=== PATIENT | female | born 1935 | race Caucasian/White ===

== ENCOUNTER → 2018-03-12 | Outpatient (CLI) | payer MEDICARE, OTHER ==
--- NOTE | 2018-03-13 09:15 | Diagnostic Imaging Report ---
History: Low back pain. Comparison studies: None Technique: Axial images were obtained through the lumbar spine from T12-S1. Coronal and sagittal images reconstructed from the axial data. Intravenous contrast: None Findings: The usual 5 non-rib bearing lumbar vertebral bodies are present. Alignment: S shaped curvature of the lumbar spine. 5 mm grade 1 retrolisthesis at L2-L3 and 6 mm grade 1 retrolisthesis at L3-L4. Soft tissues: Atherosclerotic calcification in abdominal aorta and its branches. 1 cm nonspecific hypodense nodule in left renal parenchyma, possibly represents a renal cyst. Paraspinal muscles: Significant fatty atrophy of posterior paraspinal muscles from level L4 to the sacrum. Sacroiliac joints: Mild to moderate degenerative changes in bilateral sacroiliac joints with decreased joint space, sclerosis and osteophyte Vertebrae: Diffuse osseous demineralization. Multilevel degenerative Schmorl's node, particularly T11-T12, T12-L1 and L1-L2. No fractures, infection or neoplasm. Degenerative changes: L1-L2: Mild degenerative disc disease. No canal or foraminal stenosis. L2-L3: Disc bulge and facet arthrosis without canal stenosis. Bilateral mild foraminal stenosis. L3-L4: Moderate degenerative disc disease with decreased intervertebral disc space, endplate sclerosis and anterior vertebral osteophyte. Disc bulge and grade 1 retrolisthesis in combination with facet arthrosis and thickened ligamentum flavum results in mild canal stenosis. Bilateral moderate foraminal stenosis. L4-L5: Mild degenerative disc disease. Disc bulge in combination with thickened ligamentum flavum and bilateral facet arthrosis effaces thecal sac without significant canal stenosis. Bilateral mild foraminal stenosis. L5-S1: Mild degenerative disc disease. Bilateral moderate facet arthrosis. No canal stenosis. Mild bilateral foraminal stenosis. IMPRESSION: 1. Scoliosis of lumbar spine, with grade 1 retrolisthesis at L2-L3 and L3-L4. 2. Multilevel mild lumbar spondylosis, with mild canal stenosis at L3-L4. 3. Bilateral mild foraminal stenosis at L2-L3, L4-L5, L5-S1 and bilateral moderate foraminal stenosis at L3-L4. 4. Multilevel degenerative disc disease and facet arthrosis as detailed above. 5. Ligament, spinal cord and or vascular abnormalities cannot be excluded on the basis of this examination. Signed by: Dr. Mariola Goldberg M.D. on 03/13/2018 9:12 AM
--- NOTE | 2018-03-13 09:34 | Diagnostic Imaging Report ---
TECHNIQUE: Computed tomography imaging of the LEFT HIP was performed WITHOUT injected contrast. HISTORY: Left hip pain COMPARISON: None available. FINDINGS: No fracture or osteonecrosis. No lytic or blastic lesion. 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 Generalized atrophy of the musculature. No fluid collection. No mass. Colonic diverticulosis. 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 Signed by: Dr. Davin Iniguez M.D. on 03/13/2018 9:31 AM
== END ==
LOC: CT 15:21
PROVIDERS: ATTEND Family Medicine
DX: M54.5 Low back pain (principal); M25.552 Pain in left hip
CPT/HCPCS: 72131

== ENCOUNTER 2019-02-03 16:48 | Emergency (ER) | payer MEDICARE, OTHER ==
[~2019-02-03] VITALS: Ht 160 cm; Wt 42.6 kg
--- OUTSIDE RECORDS SUMMARY | 2019-02-03 16:52 | XMS REPORT ---
Author Author [facility] Address Unknown Phone Unavailable Care Team Providers Care [employer] Supervisor Name Role Phone JUNITO SANTOS Unavailable Unavailable Payers Payer Name Policy Type Policy Number Effective Date Expiration Date Problems This patient has no known problems. Allergies, Adverse Reactions, Alerts Allergy Name Allergy Type Status Severity Reaction(s) Onset Date Inactive Date Treating Clinician Comments hydralazine HCl DA Active U 2010-05-31 00:00:00 brimonidine tartrate DA Active U 2010-05-31 00:00:00 methyldopa DA Active U 2010-05-31 00:00:00 nadolol DA Active U 2010-05-31 00:00:00 hydrochlorothiazide DA Active U 2010-05-31 00:00:00 Medications This patient has no known medications. Results Test Description Test Time Test Comments Text Results Atomic Results Result Comments CT HIP LEFT WO 2018-03-13 09:25:00 [facility] [address] [address] Patient Name: EFE BURGESS MR #: [id number] : 1935 Age/Sex: 82/F Req #: [id number] Adm Physician: Ordered by: JUNITO SANTOS MD Report #: [id number] Location: [place] Room/Bed: Procedure: CT/CT HIP LEFT WO Exam Date: 03/12/18 Exam Time: 163 REPORT STATUS: Signed TECHNIQUE: Computed tomography imaging of the LEFT HIP was performed WITHOUT injected contrast. HISTORY: Left hip pain COMPARISON: None available. FINDINGS: No fracture or osteonecrosis. No lytic or blastic lesion. 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 Generalized atrophy of the musculature. No fluid collection. No mass. Colonic diverticulosis. 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 Signed by: Dr. Jayde Simms M.D. on 03/13/2018 9:31 AM Dictated By: JAYDE SIMMS MD 0 Transcribed By: OLGA LIDIA on 03/13/18930 COPY TO: JUNITO SANTOS MD CT LUMBAR SPINE WO 2018-03-13 08:59:00 [address] [address] Patient Name: EFE BURGESS MR #: [id number] : 1935 Age/Sex: 82/F Req #: [id number] Adm Physician: Ordered by: JUNITO SANTOS MD Report #: [id number] Location: CT Room/Bed: Procedure: CT/CT LUMBAR SPINE WO Exam Date: 03/12/18 Exam Time: 1630 REPORT STATUS: Signed History: Low back pain. Comparison studies: None Technique: Axial images were obtained through the lumbar spine from T12-S1. Coronal and sagittal images reconstructed from the axial data. Intravenous contrast: None Findings: The usual 5 non-rib bearing lumbar vertebral bodies are present. Alignment: S shaped curvature of the lumbar spine. 5 mm grade 1 retrolisthesis at L2-L3 and 6 mm grade 1 retrolisthesis at L3-L4. Soft tissues: Atherosclerotic calcification in abdominal aorta and its branches. 1 cm nonspecific hypodense nodule in left renal parenchyma, possibly represents a renal cyst. Paraspinal muscles: Significant fatty atrophy of posterior paraspinal muscles from level L4 to the sacrum. Sacroiliac joints: Mild to moderate degenerative changes in bilateral sacroiliac joints with decreased joint space, sclerosis and osteophyte Vertebrae: Diffuse osseous demineralization. Multilevel degenerative Schmorl's node, particularly T11- T12, T12-L1 and L1-L2. No fractures, infection or neoplasm. Degenerative changes: L1-L2: Mild degenerative disc disease. No canal or foraminal stenosis. L2-L3: Disc bulge and facet arthrosis without canal stenosis. Bilateral mild foraminal stenosis. L3-L4: Moderate degenerative disc disease with decreased intervertebral disc space, endplate sclerosis and anterior vertebral osteophyte. Disc bulge and grade 1 retrolisthesis in combination with facet arthrosis and thickened ligamentum flavum results in mild canal stenosis. Bilateral moderate foraminal stenosis. L4-L5: Mild degenerative disc disease. Disc bulge in combination with thickened ligamentum flavum and bilateral facet arthrosis effaces thecal sac without significant canal stenosis. Bilateral mild foraminal stenosis. L5-S1: Mild degenerative disc disease. Bilateral moderate facet arthrosis. No canal stenosis. Mild bilateral foraminal stenosis. IMPRESSION: 1. Scoliosis of lumbar spine, with grade 1 retrolisthesis at L2-L3 and L3-L4. 2. Multilevel mild lumbar spondylosis, with mild canal stenosis at L3-L4. 3. Bilateral mild foraminal stenosis at L2-L3, L4-L5, L5-S1 and bilateral moderate foraminal stenosis at L3-L4. 4. Multilevel degenerative disc disease and facet arthrosis as detailed above. 5. Ligament, spinal cord and or vascular abnormalities cannot be excluded on the basis of this examination. Signed by: Dr. Mariola Goldberg M.D. on 03/13/2018 9:12 AM Dictated By: MARIOLA GOLDBERG MD 1 Transcribed By: OLGA LIDIA on 03/13/18911 COPY TO: JUNITO SANTOS MD
--- OUTSIDE RECORDS SUMMARY | 2019-02-03 16:52 | XMS REPORT | Clinical Summary ---
Author Author [employer] Organization [employer] Address Unknown Phone Unavailable Care Team Providers Care [employer] Manager Name Role Phone Asked, No Pcp PCP Unavailable Allergies Comments Active Allergy Reactions Severity Noted Date Heavy chest Methyldopa-Hydrochlorothi Rash Low 07/04/2016 azide Stingy feeling Brimonidine Other (See 07/04/2016 Comments) Heavy chest feeling Hydralazine Rash Low 07/04/2016 Beta-Blockers 09/24/2018 (Beta-Adrenergic Blocking Agts) Clindamycin 04/05/2018 hacky cough, lung problem, tachycardia Nadolol Other (See 07/04/2016 Comments) Passed out, hypertension, breathing went shallow, dif breathing Hydromorphone Other (See 07/04/2016 Comments) Pt. Complains that medication makes her nauseous Guaifenesin Low 09/26/2018 Nifedipine 04/05/2018 Medications End Date Status Medication Sig Dispensed Refills Start Date Active atorvastatin (LIPITOR) 20 Take 20 mg by 0 MG tablet mouth nightly. Active bimatoprost (LUMIGAN) Administer 1 0 0.01 % ophthalmic drops drop to both eyes nightly. Active dorzolamide (TRUSOPT) 2 % Administer 1 0 ophthalmic solution drop to both eyes 3 (three) times a day. Active arformoterol (BROVANA) 15 Take 15 mcg 0 mcg/2 mL solution for by nebulization nebulization 2 (two) times a day. Active levothyroxine (SYNTHROID, Take 125 mcg 0 LEVOTHROID) 125 MCG by mouth tablet every morning. Patient takes BRAND NAME Synthroid Active ipratropium (ATROVENT) Take by 0 0.02 % nebulizer solution nebulization 2 (two) times a day. Active propafenone SR (RYTHMOL Take 225 mg 0 SR) 225 MG 12 hr capsule by mouth 2 (two) times a day. Active calcium carbonate-vitamin Take 1 tablet 0 D3 500 mg-200 unit per by mouth 2 tablet (two) times a day with meals. Active apixaban (ELIQUIS) 2.5 mg Take 2.5 mg 0 tablet by mouth 2 (two) times a day. Active albuterol (PROAIR Inhale 2 0 HFA,PROVENTIL puffs every 6 HFA,VENTOLIN HFA) 90 (six) hours mcg/actuation inhaler as needed for wheezing. Active multivitamin (THERAGRAN) Take 1 tablet 0 tablet by mouth 2 (two) times a day. Active ascorbic acid, vitamin C, Take 500 mg 0 (ascorbic acid with macho by mouth 2 hips) 500 MG tablet (two) times a day. Active amlodipine-valsartan Take 1 tablet 0 (EXFORGE) 5-160 mg per by mouth tablet daily. Active nystatin (MYCOSTATIN) Take 500,000 0 100,000 unit/mL Units by suspension mouth 4 (four) times a day as needed. Swish in mouth Active sodium chloride 3 % Take 4 mL by 0 nebulizer solution nebulization 2 (two) times a day. Active polyethylene glycol Take 17 g by 0 (MIRALAX) 17 gram packet mouth daily as needed for constipation. 04/05/2018 Discontinued aspirin (ECOTRIN) 81 MG Take 81 mg by 0 enteric coated tablet mouth daily. 04/06/2018 Discontinued ascorbic acid, vitamin C, Take 500 mg 0 (VITAMIN C) 500 MG tablet by mouth 2 (two) times a day. 04/05/2018 Discontinued cyanocobalamin 1,000 Inject 1,000 0 mcg/mL injection mcg into the shoulder, thigh, or buttocks once. 04/05/2018 Discontinued cholecalciferol, vitamin Take 400 0 D3, (VITAMIN D3) 400 unit Units by tablet mouth daily. 04/05/2018 Discontinued amLODIPine (NORVASC) 5 mg Take 5 mg by 0 tablet mouth daily. 04/05/2018 Discontinued valsartan (DIOVAN) 160 MG Take 160 mg 0 tablet by mouth daily. 04/05/2018 Discontinued albuterol (PROVENTIL) 2.5 Take 2.5 mg 0 mg /3 mL (0.083 %) by nebulizer solution nebulization every 4 (four) hours as needed for shortness of breath. 04/05/2018 Discontinued methylPREDNISolone Take 2 mg by 0 (MEDROL) 2 MG tablet mouth daily. 04/15/2018 Discontinued amlodipine-valsartan Take 1 tablet 0 (EXFORGE) 5-160 mg per by mouth tablet daily. 04/15/2018 Discontinued sodium chloride 3 % Take 4 mL by 0 nebulizer solution nebulization 2 (two) times a day. 04/15/2018 Discontinued predniSONE (DELTASONE) 5 Take 15 mg by 0 mg tablet mouth daily. 8 For 3 days,starting on 04/04/2018 04/15/2018 Discontinued predniSONE (DELTASONE) 5 Take 10 mg by 0 mg tablet mouth daily. 8 For 3 days, starting on 04/07/2018 04/15/2018 Discontinued predniSONE (DELTASONE) 5 Take 5 mg by 0 mg tablet mouth daily. 8 For 3 days, starting on 04/10/2018 04/15/2018 Discontinued cefdinir (OMNICEF) 300 MG Take 300 mg 0 capsule by mouth 2 8 (two) times a day. For 14 days, starting on 04/01/2018 04/06/2018 Discontinued calcium carbonate/vitamin Take 1 tablet 0 D3 (CALTRATE 600 + D by mouth 2 ORAL) (two) times a day. 04/06/2018 Discontinued LUMIGAN 0.01 % ophthalmic Administer 0 drops 0.01 drops to 8 both eyes daily. 05/16/2018 valsartan (DIOVAN) 160 MG Take 1 tablet 30 tablet 0 tablet (160 mg 8 total) by mouth daily for 30 days. 05/16/2018 amLODIPine (NORVASC) 5 mg Take 1 tablet 30 tablet 0 tablet (5 mg total) 8 by mouth daily for 30 days. 05/16/2018 calcium citrate-vitamin Take 1 tablet 30 tablet 0 D3 (CITRICAL+D) 315-250 by mouth 8 mg-unit per tablet daily for 30 days. 05/16/2018 predniSONE (DELTASONE) 20 Take 1 tablet 30 tablet 0 mg tablet (20 mg total) 8 by mouth daily for 30 days. 05/15/2018 budesonide (PULMICORT) Take 2 mL 120 mL 0 0.5 mg/2 mL nebulizer (0.5 mg 8 solution total) by nebulization 2 (two) times a day for 30 days. 05/15/2018 acetylcysteine (MUCOMYST) Take 4 mL by 360 mL 0 200 mg/mL (20 %) nebulization 8 nebulizer solution 3 (three) times a day for 30 days. 09/08/2018 Discontinued meropenem 1 g in sodium Infuse 1 g 1 each 0 chloride 0.9 % MBP 100 mL into a venous 8 IVPB catheter every 12 (twelve) hours. 10/13/2018 benzonatate (TESSALON) Take 1 30 capsule 1 100 MG capsule capsule (100 8 mg total) by mouth 3 (three) times a day as needed for cough for up to 30 days. 09/24/2018 Discontinued predniSONE (DELTASONE) 10 [id number],[id number] 50 tablet 0 mg tablet 3d,[id number] 8 then stop 09/24/2018 Discontinued nystatin (MYCOSTATIN) Take 5 mL by 200 mL 0 100,000 unit/mL mouth 4 8 suspension (four) times a day for 10 days. Swish in mouth 10/08/2018 cefepime (MAXIPIME) 1 Infuse 1 g 1 each 0 gram in 50 mL Mini-Bag into a venous 9 Plus catheter daily for 7 days. 10/31/2018 vancomycin 750 mg in Infuse 750 mg 1 each 0 sodium chloride 0.9% 250 into a venous 9 mL IVPB catheter daily for 30 days. Active Problems Problem Noted Date Dyspnea 09/24/2018 COPD exacerbation 04/05/2018 Chronic a-fib 11/03/2016 Last Assessment & Plan: Management by supervisor industrial arts education. Anemia due to acute blood loss 11/03/2016 Iron deficiency anemia 11/03/2016 Last Assessment & Plan: Will check iron studies. Continue iron supplements, management by primary care doctor. 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 Denies further hematochezia, melena. Patient reports that she has blood work done 1 week ago and has not received results yet. She will send copy to us once she receives. She doesn't want to repeat blood work today. No further endoscopic intervention. Continue to monitor. Pulmonary hypertension 11/03/2016 Hypothyroidism 11/03/2016 Bronchiectasis 11/03/2016 Acute on chronic respiratory failure with hypoxemia 11/03/2016 Cachexia 11/03/2016 Warfarin-induced coagulopathy 11/03/2016 Shortness of breath 11/02/2016 Bronchiectasis 07/04/2016 Last Assessment & Plan: Management as per pulmonary team. Resolved Problems Problem Noted Date Resolved Date Pneumonia 09/08/2018 09/09/2018 Encounters Care Team Description Date Type Specialty Fernando Dhillon MD Patel, Sachin P., MD Dyspnea, unspecified type (Primary Dx); COPD exacerbation (HCC) 09/24/2018 [facility] General Internal Medicine - Encounter 10/01/2018 Arnaldo Guzmán MD Nguyen, Thuyen T., MD Kazim, Lubna S., MD Pneumonia of left lung due to infectious organism, unspecified part of lung (Primary Dx); Hyponatremia; Acute respiratory distress; Elevated brain natriuretic peptide (BNP) level 09/08/2018 Hospital Neurosurgery - Encounter 09/13/2018 N/A 05/28/2018 Intake Access Jacky Barrios MD Nguyen, Keesha Pineda MD COPD with acute exacerbation (Primary Dx) 04/05/2018 Hospital Neurology - Encounter 04/15/2018 Leon Kauffman MD 03/15/2018 Telephone Gastroenterology Leon Kauffman MD 03/13/2018 Telephone Gastroenterology after 02/02/2018 Family History Medical History Relation Name Comments Diabetes Father Heart disease Mother Asthma Sister COPD Sister Diabetes Sister Heart disease Sister Relation Name Status Comments Father Mother Sister Social History Date Tobacco Use Types Packs/Day Years Used Never Smoker Smokeless Tobacco: Never Used Alcohol Use Drinks/Week oz/Week Comments No Sex Assigned at Date Recorded Not on file Industry Job Start Date Occupation Not on file Not on file Not on file Travel End Travel History Travel Start No recent travel history available. Last Filed Vital Signs Time Taken Vital Sign Reading 10/01/2018 7:44 AM [employer] Blood Pressure 133/61 10/01/2018 3:14 PM [employer] Pulse 77 10/01/2018 7:44 AM [employer] Temperature 36.9 C (98.4 F) 10/01/2018 3:14 PM [employer] Respiratory Rate 18 10/01/2018 3:07 PM [employer] Oxygen Saturation 99% - Inhaled Oxygen - Concentration 09/08/2018 3:01 PM [employer] Weight 42.6 kg (94 lb) 09/24/2018 12:38 PM [employer] Height 160 cm (5' 3") 09/08/2018 3:01 PM [employer] Body Mass Index 16.14 Plan of Treatment Health Maintenance Due Date Last Done Comments SHINGLES VACCINES (#1) 1986 65+ PNEUMOCOCCAL VACCINE 2001 (1 of 2 - PCV13) PNEUMOCOCCAL 2001 POLYSACCHARIDE VACCINE AGE 65 AND OVER INFLUENZA VACCINE 04/17/2019 Implants Device Identifier Shelf Expiration Date Model / Serial / Lot Implanted Type Area Manufactur er Clip Clip [id number] / / Device Clip Hmsts 235cm 2.8x11mm Surgical N/A: N/A BSC Strl Resolution - [id number] Implants; ENDOSCOPY Implanted: 11/07/2016 (Quantity not Expanders; on file) Extenders; Surgical Wires [id number] / / Device Clip Hmsts 235cm 2.8x11mm Surgical N/A: N/A BSC Strl Resolution - [id number] Implants; ENDOSCOPY Implanted: 11/07/2016 (Quantity not Expanders; on file) Extenders; Surgical Wires [id number] / / Device Clip Hmsts 235cm 2.8x11mm Surgical BSC Strl Resolution - [id number] Implants; ENDOSCOPY Implanted: Qty: 1 on 11/07/2016 by [employer]; Leon Kauffman MD Extenders; Surgical Wires [id number] / / Device Clip Hmsts 235cm 2.8x11mm Surgical BSC Strl Resolution - [id number] Implants; ENDOSCOPY Implanted: Qty: 1 on 11/07/2016 by [employer]; Leon Kauffman MD Extenders; Surgical Wires Wires Procedures Comments Procedure Name Priority Date/Time Associated Diagnosis ESTIMATED GFR Routine 10/01/2018 4:00 AM [employer] BASIC METABOLIC PANEL Routine 10/01/2018 4:00 AM [employer] BLOOD CULTURE, AEROBIC & Routine 09/30/2018 ANAEROBIC 4:30 PM [employer] BLOOD CULTURE, AEROBIC & Routine 09/30/2018 ANAEROBIC 4:00 PM [employer] XR CHEST 2 VW Routine 09/30/2018 10:14 AM [employer] GRAM STAIN Routine 09/27/2018 11:45 AM [employer] SPUTUM CULTURE Routine 09/27/2018 11:45 AM [employer] ESTIMATED GFR Routine 09/27/2018 6:39 AM [employer] BASIC METABOLIC PANEL Routine 09/27/2018 6:39 AM [employer] GRAM STAIN Routine 09/26/2018 10:30 AM [employer] SPUTUM CULTURE Routine 09/26/2018 10:30 AM [employer] ESTIMATED GFR Routine 09/26/2018 5:25 AM [employer] HC COMPLETE BLD COUNT Routine 09/26/2018 W/AUTO DIFF 5:25 AM [employer] BASIC METABOLIC PANEL Routine 09/26/2018 5:25 AM [employer] HC COMPLETE BLD COUNT Routine 09/25/2018 W/AUTO DIFF 5:20 AM [employer] ESTIMATED GFR Routine 09/25/2018 4:00 AM [employer] T4, FREE Routine 09/25/2018 4:00 AM [employer] THYROID STIMULATING Routine 09/25/2018 HORMONE 4:00 AM [employer] BASIC METABOLIC PANEL Routine 09/25/2018 4:00 AM [employer] TROPONIN Timed 09/24/2018 8:00 PM [employer] TROPONIN Timed 09/24/2018 8:00 PM [employer] RESPIRATORY PATHOGEN Routine 09/24/2018 PANEL 8:00 PM [employer] XR CHEST 1 VW STAT 09/24/2018 3:49 PM [employer] ESTIMATED GFR STAT 09/24/2018 3:40 PM [employer] B NATRIURETIC PEPTIDE STAT 09/24/2018 3:40 PM [employer] TROPONIN STAT 09/24/2018 3:40 PM [employer] COMPREHENSIVE METABOLIC STAT 09/24/2018 PANEL 3:40 PM [employer] HC COMPLETE BLD COUNT STAT 09/24/2018 W/AUTO DIFF 3:40 PM [employer] ECG 12-LEAD STAT 09/24/2018 12:54 PM [employer] HC COMPLETE BLD COUNT Routine 09/11/2018 W/AUTO DIFF 5:30 AM [employer] MISCELLANEOUS REFERRAL Routine 09/11/2018 TEST 4:00 AM [employer] ESTIMATED GFR Routine 09/11/2018 4:00 AM [employer] BASIC METABOLIC PANEL Routine 09/11/2018 4:00 AM [employer] ESTIMATED GFR Routine 09/10/2018 4:00 AM [employer] HC COMPLETE BLD COUNT Routine 09/10/2018 W/AUTO DIFF 4:00 AM [employer] BASIC METABOLIC PANEL Routine 09/10/2018 4:00 AM [employer] GRAM STAIN Routine 09/09/2018 5:30 PM [employer] SPUTUM CULTURE Routine 09/09/2018 5:30 PM [employer] LACTIC ACID LEVEL, SEPSIS Timed 09/09/2018 - NOW AND REPEAT 2X EVERY 11:21 AM [employer] 3 HOURS HC COMPLETE BLD COUNT Routine 09/09/2018 W/AUTO DIFF 6:00 AM [employer] ESTIMATED GFR Routine 09/09/2018 4:00 AM [employer] BASIC METABOLIC PANEL Routine 09/09/2018 4:00 AM [employer] LACTIC ACID LEVEL, SEPSIS Timed 09/08/2018 - NOW AND REPEAT 2X EVERY 8:46 PM [employer] 3 HOURS BLOOD CULTURE, AEROBIC & Routine 09/08/2018 ANAEROBIC 5:[address] CHEST WO CONTRAST STAT 09/08/2018 4:44 PM [employer] RESPIRATORY PATHOGEN Routine 09/08/2018 PANEL 3:37 PM [employer] MANUAL DIFFERENTIAL STAT 09/08/2018 3:31 PM [employer] ESTIMATED GFR STAT 09/08/2018 3:31 PM [employer] B NATRIURETIC PEPTIDE STAT 09/08/2018 3:31 PM [employer] TROPONIN, I-STAT STAT 09/08/2018 3:31 PM [employer] LACTIC ACID LEVEL, SEPSIS STAT 09/08/2018 - NOW AND REPEAT 2X EVERY 3:31 PM [employer] 3 HOURS COMPREHENSIVE METABOLIC STAT 09/08/2018 PANEL 3:31 PM [employer] CBC WITH PLATELET AND STAT 09/08/2018 DIFFERENTIAL 3:31 PM [employer] BLOOD CULTURE, AEROBIC & Routine 09/08/2018 ANAEROBIC 3:30 PM [employer] XR CHEST 1 VW PORTABLE STAT 09/08/2018 3:15 PM [employer] URINALYSIS STAT 09/08/2018 2:55 PM [employer] GRAM STAIN Routine 09/08/2018 2:55 PM [employer] URINE CULTURE Routine 09/08/2018 2:55 PM [employer] ECG 12-LEAD STAT 09/08/2018 2:53 PM [employer] TRANSFUSE RED BLOOD CELLS Routine 05/22/2018 5:30 PM CDT TRANSFUSE RED BLOOD CELLS Routine 05/22/2018 5:30 PM CDT TRANSFUSE FRESH FROZEN STAT 05/22/2018 PLASMA 5:30 PM CDT ZZESTIMATED GFR Routine 04/15/2018 6:10 AM CDT BASIC METABOLIC PANEL Routine 04/15/2018 6:10 AM CDT HC COMPLETE BLD COUNT Routine 04/15/2018 W/AUTO DIFF 6:04 AM CDT RESPIRATORY PATHOGEN Routine 04/13/2018 PANEL 6:21 PM CDT ZZESTIMATED GFR Routine 04/13/2018 5:20 AM CDT BASIC METABOLIC PANEL Routine 04/13/2018 5:20 AM CDT ZZESTIMATED GFR Routine 04/12/2018 5:41 AM CDT BASIC METABOLIC PANEL Routine 04/12/2018 5:41 AM CDT US CAROTID DUPLEX Routine 04/11/2018 BILATERAL 11:00 AM CDT ECHOCARDIOGRAM 2D Routine 04/11/2018 COMPLETE W MMODE SPECTRAL 10:00 AM CDT COLOR DOPPLER (88743) ZZESTIMATED GFR Routine 04/11/2018 5:39 AM CDT HC COMPLETE BLD COUNT Routine 04/11/2018 W/AUTO DIFF 5:39 AM CDT BASIC METABOLIC PANEL Routine 04/11/2018 5:39 AM CDT TROPONIN Routine 04/10/2018 2:03 PM CDT B NATRIURETIC PEPTIDE Routine 04/10/2018 2:03 PM CDT ECG 12-LEAD STAT 04/10/2018 12:11 PM CDT XR CHEST 1 VW PORTABLE STAT 04/10/2018 11:30 AM CDT ARTERIAL BLOOD GAS Routine 04/10/2018 11:10 AM CDT ZZESTIMATED GFR Routine 04/09/2018 5:30 AM CDT HC COMPLETE BLD COUNT Routine 04/09/2018 W/AUTO DIFF 5:30 AM CDT BASIC METABOLIC PANEL Routine 04/09/2018 5:30 AM CDT HC COMPLETE BLD COUNT Routine 04/08/2018 W/AUTO DIFF 3:43 AM CDT HC COMPLETE BLD COUNT Routine 04/07/2018 W/AUTO DIFF 5:20 AM CDT ZZESTIMATED GFR Routine 04/06/2018 7:17 AM CDT BASIC METABOLIC PANEL Routine 04/06/2018 7:17 AM CDT HC COMPLETE BLD COUNT Routine 04/06/2018 W/AUTO DIFF 7:17 AM CDT LACTIC ACID LEVEL, SEPSIS Timed 04/05/2018 - NOW AND REPEAT 2X EVERY 3:53 PM CDT 3 HOURS TROPONIN Timed 04/05/2018 11:45 AM CDT LACTIC ACID LEVEL, SEPSIS Timed 04/05/2018 - NOW AND REPEAT 2X EVERY 11:45 AM CDT 3 HOURS RESPIRATORY PATHOGEN Routine 04/05/2018 PANEL 11:39 AM CDT URINALYSIS SCREEN AND Routine 04/05/2018 MICROSCOPY, WITH REFLEX 9:30 AM CDT TO CULTURE URINE CULTURE Routine 04/05/2018 9:30 AM CDT XR CHEST 1 VW PORTABLE STAT 04/05/2018 8:18 AM CDT BLOOD CULTURE, AEROBIC & Routine 04/05/2018 ANAEROBIC 8:00 AM CDT BLOOD CULTURE, AEROBIC & Routine 04/05/2018 ANAEROBIC 7:55 AM CDT ZZESTIMATED GFR STAT 04/05/2018 7:52 AM CDT VENOUS BLOOD GAS STAT 04/05/2018 7:52 AM CDT B NATRIURETIC PEPTIDE STAT 04/05/2018 7:52 AM CDT TROPONIN STAT 04/05/2018 7:52 AM CDT LACTIC ACID LEVEL, SEPSIS STAT 04/05/2018 - NOW AND REPEAT 2X EVERY 7:52 AM CDT 3 HOURS COMPREHENSIVE METABOLIC STAT 04/05/2018 PANEL 7:52 AM CDT HC COMPLETE BLD COUNT STAT 04/05/2018 W/AUTO DIFF 7:52 AM CDT ECG 12-LEAD STAT 04/05/2018 7:40 AM CDT ECG ED PRELIMINARY Routine 04/05/2018 INTERPRETATION 7:36 AM CDT after 02/02/2018 Results * Estimated GFR (10/01/2018 4:00 AM [employer]) Only the most recent of 9 results within the time period is included. [facility] Estimated GFR 68 mL/min/1.73 m2 [place] Comment: [facility] rpretation G1 >=90 Normal or high G2 60-89Mildly decreased [id number] Mildly to moderately decreased G0o13-48 Moderately to severely decreased G4 15-29Severely decreased G5 <15Kidney failure The eGFR was calculated using the Chronic Kidney Disease Epidemiology Collaboration (CKD-EPI) equation. Interpretation is based on recommendations of the National Kidney Foundation-Kidney Disease Outcomes Quality Initiative (NKF-KDOQI) published in 2014. Specimen Plasma specimen Performing Organization Address City/State/Zipcode Phone Number [facility] DEPARTMENT OF [address] [place] [address] PATHOLOGY AND GENOMIC MEDICINE [address] * Basic metabolic panel (10/01/2018 4:00 AM [employer]) Only the most recent of 13 results within the time period is included. [facility] Sodium 130 (L) 135 - 148 mEq/L [facility] Potassium 3.9 3.5 - 5.0 mEq/L [facility] Chloride 94 (L) 98 - 112 mEq/L [facility] CO2 28 24 - 31 mEq/L [facility] Anion gap 8@ANIO 7 - 15 mEq/L [facility] BUN 20 8 - 23 mg/dL [facility] Creatinine 0.80 0.50 - 0.90 mg/dL [facility] Glucose 74 65 - 99 mg/dL [facility] Calcium 9.7 8.8 - 10.2 mg/dL [facility] Specimen Plasma specimen Performing Organization Address City/[facility] Phone Number [facility] DEPARTMENT OF [address] [place] [address] PATHOLOGY AND GENOMIC MEDICINE [address] * Blood culture, aerobic & anaerobic (09/30/2018 4:30 PM [employer]) Only the most recent of 6 results within the time period is included. Blood culture No growth after 5 days of [place] isolate incubation. [facility] Comment: HOSPITAL Specimen Information Specimen Source: Blood Specimen Site: Forearm, right Specimen Blood - Forearm, right Performing Organization Address [facility] Phone Number [facility] DEPARTMENT OF [address] [place] [address] PATHOLOGY AND GENOMIC MEDICINE [address] * XR Chest 2 Vw (09/30/2018 10:14 AM [employer]) Specimen Narrative Performed At Examination:XR CHEST 2 VW RADIANT Clinical History: Shortness of breath Comparison: September 24, 2018 Technique: Frontal and lateral views of the chest Impression: Hyperinflation consistent with COPD. Apical pleural-parenchymal scarring, scattered postinflammatory changes, peribronchial cuffing, and left basilar atelectasis/infiltrate without significant change. Small left basilar pleural effusion is also stable. No definite new infiltrate. Stable cardiomediastinal silhouette. [id number] Procedure Note Hm Interface, Radiology Results Incoming - 09/30/2018 10:20 AM [employer] Examination: XR CHEST 2 VW Clinical History: Shortness of breath Comparison: September 24, 2018 Technique: Frontal and lateral views of the chest Impression: Hyperinflation consistent with COPD. Apical pleural-parenchymal scarring, scattered postinflammatory changes, peribronchial cuffing, and left basilar atelectasis/infiltrate without significant change. Small left basilar pleural effusion is also stable. No definite new infiltrate. Stable cardiomediastinal silhouette. [id number] Performing Organization Address City/State/Zipcode Phone Number [facility] [address] [place] [address] * Sputum culture (09/27/2018 11:45 AM [employer]) Only the most recent of 3 results within the time period is included. Sputum culture Normal oral abiel isolated. [place] isolate (A) [facility] Comment: HOSPITAL Specimen Information Specimen Source: Sputum Specimen Site: Expectorated Sputum culture Pseudomonas aeruginosa [place] isolate Occasionalmucoid [facility] Order #[id number] (A) Specimen Sputum - Expectorated Performing Organization Address City/State/Zipcode Phone Number [facility] [place] [address] PATHOLOGY AND GENOMIC MEDICINE [address] * Gram stain (09/27/2018 11:45 AM [employer]) Only the most recent of 4 results within the time period is included. Gram stain Few WBC's [place] isolate Occasional Gram positive cocci [facility] in [facility] Comment: Specimen Information Specimen Source: Sputum Specimen Site: Expectorated Specimen Sputum - Expectorated Performing Organization Address City/[facility]/Zipcode Phone Number [facility] [place] [address] PATHOLOGY AND GENOMIC MEDICINE [address] * CBC with platelet and differential (09/26/2018 5:25 AM [employer]) Only the most recent of 14 results within the time period is included. WBC 11.08 (H) 4.50 - 11.00 k/uL [facility] RBC 3.00 (L) 4.20 - 5.50 m/uL [facility] HGB 9.8 (L) 12.0 - 16.0 g/dL [facility] HCT 31.6 (L) 37.0 - 47.0 % [facility] MCV 105.3 (H) 82.0 - 100.0 fL [facility] MCH 32.7 27.0 - 34.0 pg [facility] MCHC 31.0 31.0 - 37.0 g/dL [facility] RDW - SD 55.2 (H) 37.0 - 55.0 fL [facility] MPV 10.2 8.8 - 13.2 fL [facility] Platelet count 237 150 - 400 k/uL [facility] Nucleated RBC 0.00 /100 WBC [facility] Neutrophils 77.3 (H) 39.0 - 69.0 % [facility] Lymphocytes 10.5 (L) 25.0 - 45.0 % [facility] Monocytes 9.2 0.0 - 10.0 % [facility] Eosinophils 2.2 0.0 - 5.0 % [facility] Basophils 0.3 0.0 - 1.0 % [facility] Immature 0.5Comment: "Immature 0.0 - 1.0 % [place] granulocytes granulocytes" (promyelocytes, [facility] myelocytes, metamyelocytes) HOSPITAL Specimen Blood Performing Organization Address City/[facility] Phone Number [facility] [place] [address] PATHOLOGY AND [facility] MEDICINE [address] * Thyroid stimulating hormone (09/25/2018 4:00 AM [employer]) Pathologist [facility] TSH 11.39 (H) 0.27 - 4.20 uIU/mL [facility] Specimen Plasma specimen Performing Organization Address City/[facility] Phone Number [facility] [place] [address] PATHOLOGY AND [facility] MEDICINE [address] * T4, free (09/25/2018 4:00 AM [employer]) Pathologist [facility] T4, free 1.0 0.9 - 1.7 ng/dL [facility] Specimen Plasma specimen Performing Organization Address City/[facility] Phone Number [facility] [place] [address] PATHOLOGY AND GENOMIC MEDICINE [address] * Respiratory pathogen panel (09/24/2018 8:00 PM PIE CRUST MIXER) Only the most recent of 4 results within the time period is included. Respiratory Negative for all pathogens [place] pathogen panel tested: [facility] Negative for Adenovirus [facility] Negative for Coronavirus HKU1 Negative for Coronavirus NL63 Negative for Coronavirus 229E Negative for Coronavirus OC43 Negative for Human Metapneumovirus Negative for Rhinovirus/Enterovirus Negative for Influenza A Negative for Influenza A/H1 Negative for Influenza A/H3 Negative for Influenza A/H1-2009 Negative for Influenza B Negative for Parainfluenza Virus 1 Negative for Parainfluenza Virus 2 Negative for Parainfluenza Virus 3 Negative for Parainfluenza Virus 4 Negative for Respiratory Syncytial Virus Negative for Bordetella pertussis Negative for Chlamydophila pneumoniae Negative for Mycoplasma pneumoniae This real-time PCR assay detects the presence of nucleic acids (RNA or DNA) for the respiratory pathogens listed. A result of "Not-detected" does not exclude the possibility of the presence of one or more pathogens at concentrations less than the detectable limits of the assay. Comment: Specimen Information Specimen Source: Nares Specimen Site: Left Specimen Nares - Left Performing Organization Address City/[facility] Hospitalcode Phone Number [facility] DEPARTMENT OF [address] [place] [address] * Troponin (09/24/2018 8:00 PM PIE CRUST MIXER) Only the most recent of 6 results within the time period is included. Troponin <0.30 0.00 - 0.30 ng/mL [place] Comment: [facility] 0.30 - 1.49 HOSPITAL ng/mlMay indicate increased risk of acute coronary syndrome. >=1.5 ng/ml Consistent with acute myocardial infarction. The diagnostic value of a single normal or non-diagnostic result is questionable.Serial samples at 2-6 hour intervals are required to rule out acute myocardial injury. Specimen Plasma specimen Performing Organization Address [facility] Hospitalcode Phone Number [facility] DEPARTMENT OF [address] [place] [address] PATHOLOGY AND [employer] MEDICINE [address] * XR Chest 1 Vw (09/24/2018 3:49 PM PIE CRUST MIXER) Specimen Narrative Performed At EXAMINATION: XR CHEST 1 VW [facility] CLINICAL HISTORY: Chest painnormal ekg COMPARISON:Chest AP 09/08/2018 IMPRESSION: No significant change. Extensive emphysematous changes and bronchiectasis of the bilateral lungs with interstitial prominence. Small to moderate layering left pleural effusion. Cardiac mediastinal silhouette is unchanged. Atherosclerosis aortic arch. No acute osseous abnormality. [id number] Procedure Note Interface, Radiology Results Incoming - 09/24/2018 3:56 PM PIE CRUST MIXER EXAMINATION: XR CHEST 1 VW CLINICAL HISTORY: Chest pain normal ekg COMPARISON: Chest AP 09/08/2018 IMPRESSION: No significant change. Extensive emphysematous changes and bronchiectasis of the bilateral lungs with interstitial prominence. Small to moderate layering left pleural effusion. Cardiac mediastinal silhouette is unchanged. Atherosclerosis aortic arch. No acute osseous abnormality. [id number] Performing Organization Address City/[facility]/Zipcode Phone Number [facility] [address] [place] [address] * B natriuretic peptide (09/24/2018 3:40 PM PIE CRUST MIXER) Only the most recent of 4 results within the time period is included. BNP 231 (H) 0 - 100 pg/mL [facility] Specimen Blood Performing Organization Address City/[facility] Hospitalcode Phone Number [facility] DEPARTMENT OF [address] [place] [address] PATHOLOGY AND GENOMIC MEDICINE [address] * Comprehensive metabolic panel (09/24/2018 3:40 PM PIE CRUST MIXER) Only the most recent of 3 results within the time period is included. Sodium 133 (L) 135 - 148 mEq/L [facility] Potassium 3.8 3.5 - 5.0 mEq/L [facility] Chloride 96 (L) 98 - 112 mEq/L [facility] CO2 29 24 - 31 mEq/L [facility] Anion gap 8@ANIO 7 - 15 mEq/L [facility] BUN 21 8 - 23 mg/dL [facility] Creatinine 0.76 0.50 - 0.90 mg/dL [facility] Glucose 96 65 - 99 mg/dL [facility] Calcium 9.2 8.8 - 10.2 mg/dL [facility] Protein 7.2 6.3 - 8.3 g/dL [place] Comment: [facility] 4.6-7.0 g/dL 1 week 4.4-7.6 g/dL 7 months-1year 5.1-7.3 g/dL 1-2 years5.6-7 .5 g/dL >3 years6.0-8 .0 g/dL 18-150 6.3-8.3 g/dL Albumin 2.8 (L) 3.5 - 5.0 g/dL [facility] A/G ratio 0.6 (L) 0.7 - 3.8 [facility] Alkaline 72 35 - 104 U/L [place] phosphatase [facility] AST 20 10 - 35 U/L [facility] ALT 23 5 - 50 U/L [facility] Total bilirubin 0.8 0.0 - 1.2 mg/dL [facility] Specimen Plasma specimen Performing Organization Address City/State/Zipcode Phone Number [facility] DEPARTMENT OF [address] [place] [address] PATHOLOGY AND GENOMIC MEDICINE [address] * ECG 12 lead (09/24/2018 12:54 PM PIE CRUST MIXER) Only the most recent of 4 results within the time period is included. [facility] Ventricular 77 [facility] MUSE rate Atrial rate 77 [facility] MUSE GA interval 170 [facility] QRSD interval 102 [facility] QT interval 410 [facility] QTC interval 463 [facility] P axis 1 92 [facility] QRS axis 1 106 [facility] MUSE T wave axis 79 [facility] MUSE EKG impression ^^^ Suspect arm lead reversal, [facility] MUSE interpretation assumes no reversal-Normal sinus rhythm-Minimal voltage criteria for LVH, may be normal variant-Lateral infarct (cited on or before 04-JUL-2016)-Abnormal ECG-In automated comparison with ECG of 08-SEP-2018 14:53,-QRS axis shifted right-Questionable change in initial forces of Lateral leads- Specimen Narrative Performed At Performing Organization Address City/[facility] Hospitalcoal Phone Number [facility] [address] [place] [address] * Miscellaneous referral test (09/11/2018 4:00 AM PIE CRUST MIXER) Pathologist [facility] Misc test name VIT D 1,25 [facility] Misc test SEE NOTE [facility] result Comment: 1,25 DIHYDROXYVITAMIN D RESULTS: 70 pg/mL Reference: Test performed by: [employer] [address] [place], [place] Specimen Performing Organization Address City/State/Zipcode Phone Number [facility] [address] [place] [address] [facility] [address] [place] [address] * Lactic acid level, SEPSIS - Now and repeat 2x every 3 hours (09/09/2018 11:21 AM PIE CRUST MIXER) Only the most recent of 6 results within the time period is included. Lactic acid 1.6 0.5 - 2.2 mmol/L [facility] Specimen Blood Performing Organization Address City/State/Zipcode Phone Number [facility] DEPARTMENT OF [address] [place] [address] PATHOLOGY AND GENOMIC MEDICINE [facility] [address] * CT Chest Wo Contrast (09/08/2018 4:44 PM PIE CRUST MIXER) Specimen Narrative Performed At EXAMINATION: RADIANT CT CHEST WO CONTRAST CLINICAL HISTORY: dyspneaabnormal cxr TECHNIQUE:Multiple axial images of the chest were obtained without intravenous contrast. The lack of intravenous contrast reduces the sensitivity of detecting solid organ disease and evaluating vasculature. Sagittal and coronal computerized reformatted images were also obtained. CT scans are performed using radiation dose reduction techniques. Technical factors are evaluated and adjusted to ensure appropriate moderation of exposure. Automated dose management technology is applied to adjust radiation exposure while achieving a diagnostic quality image COMPARISON: June 04, 2017 FINDINGS: Scans of the lungs were similar to those seen on the preceding exam.There are extensive emphysematous changes with bronchial dilatation or mucous plugging compatible with chronic bronchiectasis.There some minimal pleural thickening or chronic effusion at the left lung base. There is minimal scattered mediastinal adenopathy probably reactive in nature.There is no mediastinal mass.Thoracic aorta is atherosclerotic with no aneurysm pulmonary artery is not dilated. There are scattered coronary artery calcifications and some valvular calcification is well. IMPRESSION: Chronic emphysematous change with bronchiectasis. [facility]-[id number] Procedure Note Interface, Radiology Results Incoming - 09/08/2018 4:52 PM PIE CRUST MIXER EXAMINATION: CT CHEST WO CONTRAST CLINICAL HISTORY: dyspnea abnormal cxr TECHNIQUE: Multiple axial images of the chest were obtained without intravenous contrast. The lack of intravenous contrast reduces the sensitivity of detecting solid organ disease and evaluating vasculature. Sagittal and coronal computerized reformatted images were also obtained. CT scans are performed using radiation dose reduction techniques. Technical factors are evaluated and adjusted to ensure appropriate moderation of exposure. Automated dose management technology is applied to adjust radiation exposure while achieving a diagnostic quality image COMPARISON: June 04, 2017 FINDINGS: Scans of the lungs were similar to those seen on the preceding exam. There are extensive emphysematous changes with bronchial dilatation or mucous plugging compatible with chronic bronchiectasis. There some minimal pleural thickening or chronic effusion at the left lung base. There is minimal scattered mediastinal adenopathy probably reactive in nature. There is no mediastinal mass. Thoracic aorta is atherosclerotic with no aneurysm pulmonary artery is not dilated. There are scattered coronary artery calcifications and some valvular calcification is well. IMPRESSION: Chronic emphysematous change with bronchiectasis. [id number] Performing Organization Address City/State/Zipcode Phone Number [facility] [address] [place] [address] * Troponin, I-Stat (09/08/2018 3:31 PM PIE CRUST MIXER) Troponin, 0.02 0.00 - 0.08 ng/mL [place] I-Stat Comment: [facility] 0.30 - 1.49 EMERGENCY CARE ng/mlMay CENTER indicate increased risk of acute coronary syndrome. >=1.5 ng/ml Consistent with acute myocardial infarction. The diagnostic value of a single normal or non-diagnostic result is questionable.Serial samples at 2-6 hour intervals are required to rule out acute myocardial injury. Specimen Plasma specimen Performing Organization Address City/[facility]/Zipcode Phone Number DEPARTMENT OF [address] [facility], [place] [address] PATHOLOGY AND GENOMIC [facility] [address] [facility] [address] [place] [address] EMERGENCY CARE CENTER * Manual differential (09/08/2018 3:31 PM PIE CRUST MIXER) Manual PERFORMED [place] differential [facility] Neutrophils 77.0 (H) 39.0 - 69.0 % [facility] Lymphocytes 9.0 (L) 25.0 - 45.0 % [facility] Monocytes 9.0 0.0 - 10.0 % [facility] Eosinophils 5.0 0.0 - 5.0 % [facility] Basophils 0.0 0.0 - 1.0 % [facility] Metamyelocytes 0 % [facility] Promyelocytes 0 % [facility] Platelet slide Renetta adequate [place] review [facility] Anisocytosis Moderate [facility] Polychromasia Moderate [facility] Specimen Performing Organization Address City/[facility] Hospitalcode Phone Number [facility] DEPARTMENT OF [address] [place] [address] PATHOLOGY AND GENOMIC MEDICINE [facility] [address] [place] [address] [facility] [address] [facility] [address] [place] [address] EMERGENCY CARE CENTER * XR Chest 1 Vw Portable (09/08/2018 3:15 PM PIE CRUST MIXER) Only the most recent of 3 results within the time period is included. Specimen Narrative Performed At EXAMINATION:XR CHEST 1 VW [facility] CLINICAL H[facility]:cough COMPARISON:10 April 2018 IMPRESSION: Heart size is at the upper limits of normal.There is extensive fibrotic change within the lung duarte with retraction of both yomaira superiorly.This general pattern was seen on the preceding exam with no definite mass on the current exam.There is slightly increased opacification at the left lung base due to what appears to be some loculated pleural fluid and rind.A definite infiltrate is not identified. [facility]-[id number] Procedure Note Interface, Radiology Results Incoming - 09/08/2018 3:22 PM PIE CRUST MIXER EXAMINATION: XR CHEST 1 VW PORTABLE CLINICAL HISTORY: cough COMPARISON: 10 April 2018 IMPRESSION: Heart size is at the upper limits of normal. There is extensive fibrotic change within the lung duarte with retraction of both yomaira superiorly. This general pattern was seen on the preceding exam with no definite mass on the current exam. There is slightly increased opacification at the left lung base due to what appears to be some loculated pleural fluid and rind. A definite infiltrate is not identified. [facility]-[id number] Performing Organization Address City/[facility]/Zipcode Phone Number [facility] [address] [place] [address] * Urinalysis (09/08/2018 2:55 PM PIE CRUST MIXER) Glucose, UA Negative Negative [facility] Bilirubin, UA Negative Negative [facility] Ketones, UA Negative Negative [facility] Specific 1.015 1.001 - 1.035 [place] gravity, UA [facility] Blood, UA Negative Negative [facility] pH, UA 7.0 5.0 - 8.5 [facility] Protein, UA Negative Negative [facility] Urobilinogen, <2.0 <2.0 [place] UA [facility] Nitrite, UA Negative Negative [facility] Leukocyte Negative Negative [place] esterase, UA [facility] Color, UA Yellow [facility] Appearance, UA Clear [facility] Specimen Urine Performing Organization Address City/State/Zipcode Phone Number DEPARTMENT [address] [facility], [place] [address] PATHOLOGY AND GENOMIC [address] [place] [address] [address] [facility] [place] [address] EMERGENCY CARE CENTER * Urine culture (09/08/2018 2:55 PM PIE CRUST MIXER) Only the most recent of 2 results within the time period is included. [facility] Urine culture Mixed abiel <=10-3 col/cc [place] isolate Comment: [facility] Specimen Information HOSPITAL Specimen Source: Urine Specimen Site: Clean catch Specimen Urine Performing Organization Address City/[facility]/Zipcode Phone Number [facility] [address] [place] [address] PATHOLOGY AND GENOMIC MEDICINE [address] * Transfuse fresh frozen plasma (05/22/2018 5:30 PM CDT) * Transfuse RBC (05/22/2018 5:30 PM CDT) Only the most recent of 2 results within the time period is included. * Estimated GFR (04/15/2018 6:10 AM CDT) Only the most recent of 7 results within the time period is included. [facility] GFR Non Af Amer >90 mL/min/1.73 m2 [facility] DEPARTMENT OF PATHOLOGY AND GENOMIC MEDICINE GFR Af Amer >90 mL/min/1.73 m2 [facility] DEPARTMENT Comment: OF PATHOLOGY Chronic kidney disease: <60 AND GENOMIC mL/min/1.73m2 MEDICINE Kidney failure: <15 mL/min/1.73m2 The estimated GFR is calculated from the IDMS-traceable Modification of Diet in Renal Disease Equation. The accuracy of the calculation is poor when the creatinine is normal. Calculated values >90 mL/min/1.73m2 are not reported. This equation has not been validated in children (<18 years), women, the elderly (>70 years), or ethnic groups other than Caucasians and Americans. Specimen Plasma specimen Performing Organization Address City/State/Zipcode Phone Number [facility] DEPARTMENT OF [address] [place] [address] PATHOLOGY AND GENOMIC MEDICINE * Pv carotid duplex (04/11/2018 11:00 AM CDT) Specimen Narrative Performed At [facility] Vascular Ultrasound Laboratory Carotid Artery Duplex Report [id number] [facility] [address], [place] [address] For rn clinical quality purposes, the categorization of the degree of the stenosis of this exam is based on criteria described in the IAC carotid stenosis grading white paper( www.intersocietal.org/Vascular) and Coni Meraz., Carlos Cornejo, et al. Carotid artery stenosis: patel-scale and Doppler US diagnosis--Society of Radiologists in Ultrasound Consensus Conference. Radiology. 2003 Nov; 229(2):340-6. Pat.Name:SAMANTHA BURGESS.ID:[id number] .Date: 04/11/2018 Refer.MD:KEESHA GOMEZ MD Exam Time: 10:05:00 AM Study Type:Carotid Height:63inWeight:93lb BSA: 1.4 m5PFKHac:1935,82Y Sex: FEMALESonogrphr: Mita Rivera RVT Pat. Stat.:Inpatient Room:[facility] TapeVol: SD, CPT - 4: 61115 Echo Event ID:[id number] Order ID:[id number] Reason for Study:Syncope, Hx of Chronic A-fib, Bronchiestasis, COPD, HTN. Procedures:Colorflow, Grayscale/2D, Pulsed wave Doppler Race:C SUMMARY: PHYSICAL ASSESSMENT BloodPulsesCarotid Pressure Carotid TemporalBruit Right ___ ++0 Left 126/53 ++0 CAROTID ARTERY SCAN RIGHT:There is scattered hard plaquein the common carotid artery. There is hard and calcified plaque noted in the bulb extending into the internal and external carotid artery. Colorflow is minimally disturbed with elevated velocities noted in the distal internal carotid artery. There is heavy shadowing, obscuring the segment of bulb/proximal internal carotid artery. LEFT: RIGHT:There is scattered hard plaquein the common carotid artery. There is hard and calcified plaque noted in the bulb extending into the internal and external carotid artery. Colorflow is normal. There is heavy shadowing, obscuring the segment of bulb/proximal internal carotid artery. PRELIMINARY FINDINGS 1. <50% stenosis in the bulb/internal carotid artery, bilaterally. 2. Elevated velocity noted in the right distal internal carotid artery without evidence of plaque. 3. <50% stenosis in the external carotid artery, bilaterally. 4. Non stenotic hard plaque seen in the common carotid artery, bilaterally. PHYSICIAN INTERPRETATION 1.Bilateral carotid artery examination demonstrates irregular scattered calcified plaque in the common carotids,bulbs and internal carotidswithout hemodynamically significant stenosis. (<50%) Carotid Findings:RightLeft Verteb.Flw AntegradeAntegrade Subclavian Biphasic Biphasic MEASUREMENTS: DOPPLER Right CCA Dist CCA Dist PSV87.5 cm/sCCA Dist EDV12.4 cm/s Right CCA Mid CCA Mid [id number] cm/sCCA Mid EDV 12.4 cm/s Right CCA Prox CCA Prox PSV83.4 cm/sCCA Prox EDV7.58 cm/s Right ECA Prox ECA Prox PSV 127 cm/sECA Prox EDV 0 cm/s Right ICA Dist ICA Dist PSV 153 cm/[place] Dist EDV16.9 cm/s Right ICA Mid ICA Mid [id number] cm/[place] Mid EDV 17.5 cm/s Right ICA Prox ICA Prox PSV 120 cm/[place] Prox EDV13.6 cm/s Right Vertebral Vertebral [id number] cm/sVertebral EDV0 cm/s Right Subclavian Subclavian PSV 116 cm/s Left CCA Dist CCA Dist PSV 130 cm/sCCA Dist EDV13.6 cm/s Left CCA Mid CCA Mid [id number] cm/sCCA Mid EDV 15.6 cm/s Left CCA Prox CCA Prox PSV98.3 cm/sCCA Prox EDV19.5 cm/s Left ECA Prox ECA Prox PSV 108 cm/sECA Prox EDV 0 cm/s Left ICA Dist ICA Dist PSV 114 cm/[place] Dist EDV23.4 cm/s Left ICA Mid ICA Mid [id number] cm/[place] Mid EDV 31.3 cm/s Left ICA Prox ICA Prox PSV 122 cm/[place] Prox EDV25.4 cm/s Left Vertebral Vertebral [id number] cm/sVertebral EDV 23.4 cm/s Left Subclavian Subclavian PSV 112 cm/s Right ICA/CCA Ratio ICA/CCA PSV 1.08 Left ICA/CCA Ratio ICA/CCA PSV 1.17 Signed 04/11/2018 02:44 PM Domingo Valderrama MD Procedure Note Interface, Radiology Results In - 04/11/2018 2:45 PM CDT Vascular Ultrasound Laboratory Carotid Artery Duplex Report [id number] [place] [address] For rn clinical quality purposes, the categorization of the degree of the stenosis of this exam is based on criteria described in the IAC carotid stenosis grading white paper( www.intersocietal.org/Vascular) and Coni Meraz., Clemente CMarthaB., et al. Carotid artery stenosis: patel-scale and Doppler US diagnosis--Society of Radiologists in Ultrasound Consensus Conference. Radiology. 2003 Jul; 229(2):340-6. Pat.Name: SAMANTHA BURGESS Pat.ID: [id number] .Date: 04/11/2018 Refer.MD: KEESHA GOMEZ MD Exam Time: 10:05:00 AM Study Type:Carotid Height: 63in Weight: 93lb BSA: 1.4 m2 Age: 9 1935,82Y Sex: FEMALE Sonogrphr: Mita Rivera RVT Pat. Stat.:Inpatient Room: [address] Vol: SD, CPT - 4: 34912 Echo Event ID:[id number] Order ID: [id number] Reason for Study:Syncope, Hx of Chronic A-fib, Bronchiestasis, COPD, HTN. Procedures:Colorflow, Grayscale/2D, Pulsed wave Doppler Race: C SUMMARY: PHYSICAL ASSESSMENT Blood Pulses Carotid Pressure Carotid Temporal Bruit Right ___ + + 0 Left 126/53 + + 0 CAROTID ARTERY SCAN RIGHT: There is scattered hard plaque in the common carotid artery. There is hard and calcified plaque noted in the bulb extending into the internal and external carotid artery. Colorflow is minimally disturbed with elevated velocities noted in the distal internal carotid artery. There is heavy shadowing, obscuring the segment of bulb/proximal internal carotid artery. LEFT: RIGHT: There is scattered hard plaque in the common carotid artery. There is hard and calcified plaque noted in the bulb extending into the internal and external carotid artery. Colorflow is normal. There is heavy shadowing, obscuring the segment of bulb/proximal internal carotid artery. PRELIMINARY FINDINGS 1. <50% stenosis in the bulb/internal carotid artery, bilaterally. 2. Elevated velocity noted in the right distal internal carotid artery without evidence of plaque. 3. <50% stenosis in the external carotid artery, bilaterally. 4. Non stenotic hard plaque seen in the common carotid artery, bilaterally. PHYSICIAN INTERPRETATION 1. Bilateral carotid artery examination demonstrates irregular scattered calcified plaque in the common carotids, bulbs and internal carotids without hemodynamically significant stenosis. (<50%) Carotid Findings: Right Left Verteb.Flw Antegrade Antegrade Subclavian Biphasic Biphasic MEASUREMENTS: DOPPLER Right CCA Dist CCA Dist PSV 87.5 cm/s CCA Dist EDV 12.4 cm/s Right CCA Mid CCA Mid PSV 111 cm/s CCA Mid EDV 12.4 cm/s Right CCA Prox CCA Prox PSV 83.4 cm/s CCA Prox EDV 7.58 cm/s Right ECA Prox ECA Prox PSV 127 cm/s ECA Prox EDV 0 cm/s Right ICA Dist ICA Dist PSV 153 cm/s ICA Dist EDV 16.9 cm/s Right ICA Mid ICA Mid PSV 118 cm/s ICA Mid EDV 17.5 cm/s Right ICA Prox ICA Prox PSV 120 cm/s ICA Prox EDV 13.6 cm/s Right Vertebral Vertebral PSV 100 cm/s Vertebral EDV 0 cm/s Right Subclavian Subclavian PSV 116 cm/s Left CCA Dist CCA Dist PSV 130 cm/s CCA Dist EDV 13.6 cm/s Left CCA Mid CCA Mid PSV 104 cm/s CCA Mid EDV 15.6 cm/s Left CCA Prox CCA Prox PSV 98.3 cm/s CCA Prox EDV 19.5 cm/s Left ECA Prox ECA Prox PSV 108 cm/s ECA Prox EDV 0 cm/s Left ICA Dist ICA Dist PSV 114 cm/s ICA Dist EDV 23.4 cm/s Left ICA Mid ICA Mid PSV 122 cm/s ICA Mid EDV 31.3 cm/s Left ICA Prox ICA Prox PSV 122 cm/s ICA Prox EDV 25.4 cm/s Left Vertebral Vertebral PSV 110 cm/s Vertebral EDV 23.4 cm/s Left Subclavian Subclavian PSV 112 cm/s Right ICA/CCA Ratio ICA/CCA PSV 1.08 Left ICA/CCA Ratio ICA/CCA PSV 1.17 Signed 04/11/2018 02:44 PM Domingo Valderrama MD Performing Organization Address [facility]/Zipcode Phone Number [facility] [address] [place] [address] * Echocardiogram complete w contrast and 3D if needed (04/11/2018 10:00 AM CDT) Specimen Narrative Performed At [facility] Echocardiography Report [id number]Name:SAMANTHA BURGESS.ID:[id number] .Date: 04/11/2018 Refer.MD:KEESHA GOMEZ MD Exam Time: 9:43:00 AMStudy Type:Routine Echo Height:62.99in Weight:92.84lb BSA: 1.4 h6QZKIml:1935,82Y Sex: FEMALEBP:124/53 HR:72 bpmSonogrphr: BRAD Ramos Pat. Stat.:Inpatient Room:[facility] Study Status:Final Echo Event ID:[id number] Order ID:[id number] Reason for Study:Ventricular Function - Eval of LV function with prior ventricular function eval showing normal function in patients in whom there has been no change in clinical status or cardiac exam History / Clinical:Arrhythmias, Atrial Fibrillation, Hyperlipidemia, Hypertension Procedures:2D Echo, Colorflow Doppler Race:C SUMMARY: LV size and systolic function are normal. RV systolic function is normal. MV prolapse involves the posterior leaflet and on limited views also appears to involve the anterior leaflet. Mild to moderate mitral regurgitation. FINDINGS: LV: LV size is small. Concentric left ventricular remodeling. LV EFis hyperdynamic. Overall wall motion is hyperdynamic. EstimatedEF is >70%. RV: RV size is normal. RV systolic function is normal. RV wall motionis normal. LA: LA volume is difficult to assess. RA: RA size is normal. AO: Aortic root diameter is normal. MICHAEL: No pericardial effusion. AV: Mild thickening and calcification of AV leaflets. MV: Mild mitral annular calcification. MV prolapse involves the posteriorleaflet and on limited views also appears to involvethe anterior leaflet. Mild to moderate mitral regurgitation. PV: No structural PV abnormalities noted. A trace of pulmonic regurgitation. TV: No structural TV abnormalities noted. Mild to moderate tricuspidregurgitation Other:Estimated PA systolic pressure is 56 mmHg, assuming a mean RAPof 10 mmHg. MEASUREMENTS: 2D Parasternal [place] LVOT 1.9 cmLA Ds2.5 cm LVIDd3.2 cmIndex2.3 cm/m Ao Rtd 2.7 cm Index1.9 cm/m LVIDs1.7 cmLV Mass 76.2 g(87-129) LV%fs 47.6 % LVM Index 54.5 g/m2 IVSd 0.8 cmRWT0.6 LVPWd0.9 cm DOPPLER LVOT Stroke Vol LVOT 1.9 cmLVOT CO3.3 l/min LVOT TVI15.9 cmLVOT CI2.3 l/m/m2 LVOT Tm375 [id number] bpm LVOT SV 45 ml Signed 04/11/2018 06:56 PM Tarsha Calvillo M.D. Procedure Note Interface, Radiology Results In - 04/11/2018 6:56 PM CDT Echocardiography Report [address] [place] [address] Pat.Name: SAMANTHA BURGESS Pat.ID: [id number] .Date: 04/11/2018 Refer.MD: KEESHA GOMEZ MD Exam Time: 9:43:00 AM Study Type:Routine Echo Height: 62.99in Weight: 92.84lb BSA: 1.4 m2 Age: 9 1935,82Y Sex: FEMALE BP: 124/53 HR: 72 bpm Sonogrphr: BRAD Ramos Pat. Stat.:Inpatient Room: [facility] Study Status:Final Echo Event ID:[id number] Order ID: [id number] Reason for Study:Ventricular Function - Eval of LV function with prior ventricular function eval showing normal function in patients in whom there has been no change in clinical status or cardiac exam History / Clinical:Arrhythmias, Atrial Fibrillation, Hyperlipidemia, Hypertension Procedures:2D Echo, Colorflow Doppler Race: C SUMMARY: LV size and systolic function are normal. RV systolic function is normal. MV prolapse involves the posterior leaflet and on limited views also appears to involve the anterior leaflet. Mild to moderate mitral regurgitation. FINDINGS: LV: LV size is small. Concentric left ventricular remodeling. LV EF is hyperdynamic. Overall wall motion is hyperdynamic. Estimated EF is >70%. RV: RV size is normal. RV systolic function is normal. RV wall motion is normal. LA: LA volume is difficult to assess. RA: RA size is normal. AO: Aortic root diameter is normal. MICHAEL: No pericardial effusion. AV: Mild thickening and calcification of AV leaflets. MV: Mild mitral annular calcification. MV prolapse involves the posterior leaflet and on limited views also appears to involve the anterior leaflet. Mild to moderate mitral regurgitation. PV: No structural PV abnormalities noted. A trace of pulmonic regurgitation. TV: No structural TV abnormalities noted. Mild to moderate tricuspid regurgitation Other: Estimated PA systolic pressure is 56 mmHg, assuming a mean RAP of 10 mmHg. MEASUREMENTS: 2D Parasternal [place] LVOT 1.9 cm LA Ds 2.5 cm LVIDd 3.2 cm Index 2.3 cm/m Ao Rtd 2.7 cm Index 1.9 cm/m LVIDs 1.7 cm LV Mass 76.2 g (87-129) LV%fs 47.6 % LVM Index 54.5 g/m2 IVSd 0.8 cm RWT 0.6 LVPWd 0.9 cm DOPPLER LVOT Stroke Vol LVOT 1.9 cm LVOT CO 3.3 l/min LVOT TVI 15.9 cm LVOT CI 2.3 l/m/m2 LVOT Tm 375 msec HR 73 bpm LVOT SV 45 ml Signed 04/11/2018 06:56 PM Tarsha Calvillo M.D. Performing Organization Address City/[facility]/Zipcode Phone Number [facility] [address] [phone] * Arterial blood gas (04/10/2018 11:10 AM CDT) Pathologist [facility] pH, arterial 7.45 7.35 - 7.45 [facility] DEPARTMENT OF PATHOLOGY AND GENOMIC MEDICINE pCO2, arterial 63 (HH) 35 - 45 mmHg [facility] DEPARTMENT OF PATHOLOGY AND GENOMIC MEDICINE pO2, arterial 125 (H) 80 - 90 mmHg [facility] DEPARTMENT OF PATHOLOGY AND GENOMIC MEDICINE Bicarbonate, 43.2 (H) 21.0 - 28.0 mmol/L [facility] arterial OF PATHOLOGY AND GENOMIC MEDICINE Base excess, 16 (H) -2 - 2 mEq/L [facility] arterial OF PATHOLOGY AND GENOMIC MEDICINE O2 saturation, 99 95 - 100 % [facility] arterial OF PATHOLOGY AND GENOMIC MEDICINE Specimen Blood Performing Organization Address City/[facility] [place] [address] PATHOLOGY [facility] * Urinalysis screen and microscopy, with reflex to culture (04/05/2018 9:30 AM CDT) Pathologist [facility] Specimen site Clean catch [facility] DEPARTMENT OF PATHOLOGY AND GENOMIC MEDICINE Color, UA Straw [facility] DEPARTMENT OF PATHOLOGY AND GENOMIC MEDICINE Appearance, UA Hazy [facility] DEPARTMENT OF PATHOLOGY AND GENOMIC MEDICINE Specific 1.010 1.001 - 1.035 [facility] DEPARTMENT gravity, OF PATHOLOGY AND GENOMIC MEDICINE pH, UA 7.0 5.0 - 8.5 [facility] DEPARTMENT OF PATHOLOGY AND GENOMIC MEDICINE Protein, UA Negative Negative [facility] DEPARTMENT OF PATHOLOGY AND GENOMIC MEDICINE Glucose, UA Negative Negative [facility] DEPARTMENT OF PATHOLOGY AND GENOMIC MEDICINE Ketones, UA Negative Negative [facility] DEPARTMENT OF PATHOLOGY AND GENOMIC MEDICINE Bilirubin, UA Negative Negative [facility] DEPARTMENT OF PATHOLOGY AND GENOMIC MEDICINE Blood, UA Negative Negative [facility] DEPARTMENT OF PATHOLOGY AND GENOMIC MEDICINE Nitrite, UA Negative Negative [facility] DEPARTMENT OF PATHOLOGY AND GENOMIC MEDICINE Urobilinogen, <2.0 <2.0 [facility] DEPARTMENT UA OF PATHOLOGY AND GENOMIC MEDICINE Leukocyte Negative Negative [facility] DEPARTMENT esterase, UA OF PATHOLOGY AND GENOMIC MEDICINE Epithelial <1 /HPF [facility] DEPARTMENT cells, UA OF PATHOLOGY AND GENOMIC MEDICINE WBC, UA 1 0 - 4 /HPF [facility] DEPARTMENT OF PATHOLOGY AND GENOMIC MEDICINE RBC, UA 1 0 - 5 /HPF [facility] DEPARTMENT OF PATHOLOGY AND GENOMIC MEDICINE Bacteria, UA Few None seen [facility] DEPARTMENT OF PATHOLOGY AND GENOMIC MEDICINE Yeast, UA None seen [facility] DEPARTMENT OF PATHOLOGY AND GENOMIC MEDICINE Yeast with None seen [facility] DEPARTMENT pseudohyphae, OF PATHOLOGY UA AND GENOMIC MEDICINE Amorphous Few [facility] DEPARTMENT crystals OF PATHOLOGY AND GENOMIC MEDICINE Specimen Urine Performing Organization Address City/[facility]/Zipcode Phone Number [facility] [address] [place] [id number] PATHOLOGY AND GENOMIC MEDICINE * Venous blood gas (04/05/2018 7:52 AM CDT) [facility] Signature pH, venous 7.37 7.32 - 7.42 [facility] DEPARTMENT OF PATHOLOGY AND GENOMIC MEDICINE pCO2, venous 51 45 - 51 mmHg [facility] DEPARTMENT OF PATHOLOGY AND GENOMIC MEDICINE pO2, venous 57 (H) 25 - 40 mmHg [facility] DEPARTMENT OF PATHOLOGY AND GENOMIC MEDICINE Base excess, 3 (H) -2 - 2 meq/L [facility] DEPARTMENT venous OF PATHOLOGY AND GENOMIC MEDICINE O2 saturation, 88 (H) 40 - 70 % [facility] DEPARTMENT venous OF PATHOLOGY AND GENOMIC MEDICINE Bicarbonate, 28.7 (H) 21.0 - 28.0 mmol/L [facility] venous OF PATHOLOGY AND GENOMIC MEDICINE Specimen Blood Performing Organization Address City/[facility] Phone Number [facility] [address] [place] [id number] PATHOLOGY [facility] MEDICINE * ECG ED Preliminary Interpretation - NOT AN ORDER (04/05/2018 7:36 AM CDT) Narrative Performed At Jacky Barrios MD 04/06/2018 11:29 AM ECG ED Preliminary Interpretation - Not an Order Performed by: JACKY BARRIOS Authorized by: JACKY BARRIOS ECG reviewed by ED Physician in the absence of a supervisor industrial arts education: yes Previous ECG: Previous ECG:Unavailable Interpretation: Interpretation: abnormal Rate: ECG rate:88 ECG rate assessment: normal Rhythm: Rhythm: sinus rhythm Ectopy: Ectopy: none QRS: QRS axis:Normal QRS intervals:Normal Conduction: Conduction: normal ST segments: ST segments:Normal T waves: T waves: normal after 02/02/2018 Insurance Type Payer Benefit Subscriber ID Effective Phone Address Plan / Dates Group Medicare MEDICARE MEDICARE xxxxxxxxxxx 2001-P [place], [place] AND resent [place] B PPO [facility] UMR xxxxxxxx 2016-P [facility] resent THCARE CHOICE [place] Advance Directives Patient has advance care planning documents on file. For more information, erlin mccarthy contact: Kosta Rojo [address] [place] [address]
--- NOTE | 2019-02-03 18:08 | Diagnostic Imaging Report ---
L SPINE 2-3 VEWS - HOPD - 3 views HISTORY: Trauma, 3 days back pain COMPARISON: None available. FINDINGS: Bones: No fracture. There is mild wedging of the anterior L1 vertebral body, unchanged from prior study and likely degenerative in nature. Dextroconvex curvature of the lumbar spine, apex at L4. Stable retrolisthesis of L3 on L4 and L4 on L5. Multilevel spondylotic changes throughout the lumbar spine. Decreased bone mineral density. Soft tissues: Extensive vascular calcifications in the abdominal aorta and visualized vasculature. IMPRESSION: No acute radiographic abnormality. Signed by: Bay Lockhart MD on 02/03/2019 6:05 PM
--- NOTE | 2019-02-03 18:13 | Diagnostic Imaging Report ---
HIP 2 VIEW LT - HOPD - 3 views HISTORY: Fall 2 days prior, 83-year-old female COMPARISON: None available. FINDINGS: Bones: No fracture. The alignment is normal. Joints: Mild hip joint space narrowing. Soft tissues: Normal. IMPRESSION: No acute radiographic abnormality. Signed by: Bay Lockhart MD on 02/03/2019 6:09 PM
--- NOTE | 2019-02-03 18:21 | Diagnostic Imaging Report ---
KNEE 2 VIEW LT - HOPD - 2 views HISTORY: Reportedly fell 3 days prior COMPARISON: None available. FINDINGS: Bones: Transverse oriented lucency through the inferior third of the patella with sclerosis likely represents an old trauma, particularly given the lack of soft tissue swelling immediately over the patella. Additionally there is a short metallic fragment in the soft tissues immediately superior to the patella. This may represent part of a prior patellar fracture repair wire, however this can be correlated clinically. Decreased bone mineral density. Joints: Mild tricompartmental joint space narrowing with chondrocalcinosis in the medial and lateral compartments. No joint effusion. Soft tissues: Mild soft tissue swelling the supra patellar superficial soft tissues. Minimal Atherosclerotic calcifications. IMPRESSION: Mild soft tissue swelling in the superior patellar soft tissues without acute fracture. Faintly visualized transverse line through the inferior third of the patella likely represents sequela of prior trauma. Wire fragment in the soft tissue immediately superior to the patella may represent retained wire from treatment of prior trauma such as tension banding. This could be correlated clinically. Signed by: Bay Lockhart MD on 02/03/2019 6:18 PM
[2019-02-03 18:49] VITALS: BP 157/82
== END 2019-02-03 18:51 | disposition home or self-care (01) ==
LOC: FSED 16:48
DX: M54.5 Low back pain (principal); M25.552 Pain in left hip; M79.652 Pain in left thigh; W50.0XXA Accidental hit or strike by another person, initial encounter; Y92.008 Other place in unspecified non-institutional (private) residence as the place of occurrence of the external cause; I10 Essential (primary) hypertension; J44.9 Chronic obstructive pulmonary disease, unspecified; E03.9 Hypothyroidism, unspecified; E78.5 Hyperlipidemia, unspecified
CPT/HCPCS: 72100; 99283